=== PATIENT | male | born 1950 | race Caucasian/White ===

== ENCOUNTER 2021-04-05 06:22 | Day surgery (SDC) | payer MEDICARE, SELFPAY ==
[2021-03-31 11:33] VITALS: BMI 27.2
--- NOTE | 2021-03-31 13:23 | MHC.SHP ---
Pre-Procedural Eval Section A The patient is an INPATIENT: No The History & Physical has been completed within 30 days and I have reviewed it.: Yes Section B Chief Complaint: Right Eye Cataract Allergies: Allergies Allergy/AdvReac Type Severity Reaction Status Date / Time lisinopril Allergy Severe Angioedema Verified 03/31/21 11:40 Plan Diagnosis/Plan: Unchanged I have reviewed the history and physical and performed a pertinent physical examination on my patient. No changes have occurred unless specified.
--- NOTE | 2021-04-02 09:00 | P.CONAN_ITS ---
Documented by User: Meenu Bianchi 04/02/21 09:03 HPI - Anesthesia Eval Consult details Narrative: 70yo M for Right Cataract Multifocal with IOL Insertion No prev cataract on record [facility]CP [facility] Past Medical History Medical History Arthritis COVID-19 vaccine administered Diabetes Elevated cholesterol GERD (gastroesophageal reflux disease) History of colon cancer HTN (hypertension) Hx of cardiac murmur Surgical History Surgical History H/O colonoscopy History of colon resection History of esophagogastroduodenoscopy (EGD) Hx of appendectomy Hx of foot surgery Social History Social History Are you a primary personal care attendant to a significant other at home: No Do you presently have visiting nurse or other home services: No Patient Tobacco Use Status: Former Tobacco user Quit Date: age 60 Tobacco use type: Cigarette Years Smoked: 28 Use of substances other than those prescribed or required for medical reasons: No Have you been hit, kicked, punched, or otherwise hurt by someone within the past year? If so, by whom?: No Are you DNR?: No Advance Directives: Yes Advance Directives Information Provided: No Advance Directives on File: No (asked to bring day of surgery) Advance Directives Date on File: 04/05/21 Recently lost weight without trying: No Eating poorly because of decreased appetite: No Nutrition Risks: No Nutritional Risk Poor oral hygiene: No Meds Allergies Allergy/AdvReac Type Severity Reaction Status Date / Time lisinopril Allergy Severe Angioedema Verified 03/31/21 11:40 Home Medications Medication Instructions Recorded Confirmed Last Taken Type atorvastatin 1 tab PO BEDTIME 03/31/21 03/31/21 Unknown History dulaglutide [Trulicity] 0.5 ml SUBCUT QWEEK 03/31/21 04/05/21 04/04/21 History glipizide-metformin 1 tab PO BID 03/31/21 03/31/21 Unknown History irbesartan 1 tab PO BEDTIME 03/31/21 03/31/21 Unknown History omeprazole 20 mg PO BEDTIME 03/31/21 03/31/21 Unknown History aspirin 04/05/21 04/04/21 History Exam Exam Date and Time: April 02, 2021 0900 Height,Weight and Vital Signs: Height 6 ft 2 in Weight 96.162 kg Assessment and Plan Assessment Anesthesia Assessment: Chart Reviewed Documented by User: Doyle Arrington 04/05/21 07:07 [facility] Past Medical History Medical History Arthritis COVID-19 vaccine administered Diabetes Elevated cholesterol GERD (gastroesophageal reflux disease) History of colon cancer HTN (hypertension) Hx of cardiac murmur Surgical History Surgical History H/O colonoscopy History of colon resection History of esophagogastroduodenoscopy (EGD) Hx of appendectomy Hx of foot surgery Social History Social History Are you a primary personal care attendant to a significant other at home: No Do you presently have visiting nurse or other home services: No Patient Tobacco Use Status: Former Tobacco user Quit Date: age 60 Tobacco use type: Cigarette Years Smoked: 28 Use of substances other than those prescribed or required for medical reasons: No Have you been hit, kicked, punched, or otherwise hurt by someone within the past year? If so, by whom?: No Are you DNR?: No Advance Directives: Yes Advance Directives Information Provided: No Advance Directives on File: No (asked to bring day of surgery) Advance Directives Date on File: 04/05/21 Recently lost weight without trying: No Eating poorly because of decreased appetite: No Nutrition Risks: No Nutritional Risk Poor oral hygiene: No Meds Allergies Allergy/AdvReac Type Severity Reaction Status Date / Time lisinopril Allergy Severe Angioedema Verified 03/31/21 11:40 Home Medications Medication Instructions Recorded Confirmed Last Taken Type atorvastatin 1 tab PO BEDTIME 03/31/21 03/31/21 Unknown History dulaglutide [Trulicity] 0.5 ml SUBCUT QWEEK 03/31/21 04/05/21 04/04/21 History glipizide-metformin 1 tab PO BID 03/31/21 03/31/21 Unknown History irbesartan 1 tab PO BEDTIME 03/31/21 03/31/21 Unknown History omeprazole 20 mg PO BEDTIME 03/31/21 03/31/21 Unknown History aspirin 04/05/21 04/04/21 History Exam Airway Mallampati Class: II TM Dist: >3cm Neck ROM: Full Loose/Missing/Broken Teeth: No (many permanent crowns) Heart: [id number] Lungs: cta b/l Assessment and Plan Assessment Anesthesia Assessment: Anesthesia Plan Discussed, PAT Visit and Chart Reviewed Final Anesthetic Review NPO: Yes ASA Class: III Final Preanesthetic Review: No Changes in Pt Med Stat, Meds/Allgs Chart Reviewed, Consent Obtained/Reviewed and Anes Risks/Benef Reviewed Patient Risk: Low Procedure Risk: Low Assessment/Block/Sedation in SS: Assess/Block/Sedation-SS Anesthetic Plan Anesthetic Plan: MAC: and Agree w/ Assess. and Plan Disposition: Standard PACU
[2021-04-05 06:29] VITALS: BP 142/81; PULSE 85; RESP 16; TEMP 36.7; O2SAT 96
[2021-04-05 06:42] LABS: Glucose, Whole Blood 140 mg/dL (60-115)
[2021-04-05] MEDS: Tetracaine HCl/PF 0.5% Oph Sol 4 ML DROPS 1 DROP EYE-RIGHT (06:46)
[2021-04-05] MEDS: Tropicamide 1 % Ophth Sol 3 ML BTL 1 DROP EYE-RIGHT ×3 (06:47→07:01)
[2021-04-05] MEDS: Phenylephrine HCL 2.5% Oph SoL 2 ML BOTTLE 1 DROP EYE-RIGHT ×3 (06:51→07:04)
[2021-04-05] MEDS: Lactated Ringers 500 ML 50 ML IV (06:51)
--- NOTE | 2021-04-05 08:15 | HO.PNOPHT ---
Ophthalmology Procedure Procedure Date of Service: 04/05/21 Ophthalmology Viscoelastic: Healon Duet Dual Pack Pro Ophthalmology Lenses: TECNIS [id number] (22.5) Procedure Notes: PREOPERATIVE DIAGNOSIS: Decreased visual acuity right eye secondary to cataract POSTOPERATIVE DIAGNOSIS: Same PROCEDURE: Right cataract extraction with a toric multifocal intraocular lens insertion axis 92 degrees SURGEON: Steve Vargas M.D. ANESTHESIA: Topical/MAC ESTIMATED BLOOD LOSS: None COMPLICATIONS: None After obtaining informed consent, the patient was brought to the operating room suite and placed in the supine position. After adequate sedation per anesthesia, topical drops of Tetracaine were given to the right eye. The eye was then prepped and draped in the usual sterile fashion. The operating room microscope was then positioned over the operative eye and a lid speculum placed. A paracentesis was created. Viscoelastic was then instilled into the anterior chamber. A three plane incision was then created temporally, utilizing a 2.85 mm keratome. Capsulotomy forceps were then utilized to create a circular tear capsulotomy. Hydrodissection and hydrodelineation were carried out until adequate mobilization of the nucleus occurred. Phacoemulsification was then utilized to remove the dense central nucleus followed by removal of the cortical material utilizing the automated aspiration irrigation unit. Viscoelastic was instilled into the posterior capsular bag followed by placement of a multifocal posterior chamber intraocular lens without difficulty. The residual Viscoelastic was then removed utilizing the automated IA machine. The wound was checked and found to be watertight. The patient tolerated the procedure well and the lid speculum was removed. Intracameral injection of Vigamox 0.1 mL followed by a subtenon injection of Kenalog-40 0.2 mL were administered. The patient will be seen in the a.m.
[2021-04-05 08:16] VITALS: BP 142/82; PULSE 78; RESP 16; TEMP 36.4; O2SAT 95
== END 2021-04-05 08:53 | disposition home or self-care (01) ==
PROVIDERS: PCP Internal Medicine; Visit Provider Ophthalmology
PROC: (CPT 66984; principal; 2021-04-05 08:30)
DX: H25.11 Age-related nuclear cataract, right eye (principal); E11.9 Type 2 diabetes mellitus without complications; I10 Essential (primary) hypertension; Z79.84 Long term (current) use of oral hypoglycemic drugs; Z79.899 Other long term (current) drug therapy; Z88.8 Allergy status to other drugs, medicaments and biological substances
CPT/HCPCS: 66984; 82947; J2250; J3010; J3300; V2788

== ENCOUNTER 2021-04-19 06:15 | Day surgery (SDC) | payer MEDICARE, SELFPAY ==
[2021-03-31 11:42] VITALS: BMI 27.2
--- NOTE | 2021-04-15 07:39 | MHC.SHP ---
Pre-Procedural Eval Section A The patient is an INPATIENT: No The History & Physical has been completed within 30 days and I have reviewed it.: Yes Section B Chief Complaint: Cataract left eye Allergies: Allergies Allergy/AdvReac Type Severity Reaction Status Date / Time lisinopril Allergy Severe Angioedema Verified 03/31/21 11:40 Plan Diagnosis/Plan: Unchanged I have reviewed the history and physical and performed a pertinent physical examination on my patient. No changes have occurred unless specified.
[2021-04-19 06:57] VITALS: BP 149/84; PULSE 83; RESP 16; TEMP 36.3; O2SAT 94
[2021-04-19 06:57] LABS: Glucose, Whole Blood 135 mg/dL (60-115)
[2021-04-19] MEDS: Tetracaine HCl/PF 0.5% Oph Sol 4 ML DROPS 1 DROP EYE-LEFT (06:59)
[2021-04-19] MEDS: Tropicamide 1 % Ophth Sol 3 ML BTL 1 DROP EYE-LEFT ×3 (07:00→07:18)
[2021-04-19] MEDS: Lactated Ringers 500 ML 50 ML IV (07:02)
[2021-04-19] MEDS: Phenylephrine HCL 2.5% Oph SoL 2 ML BOTTLE 1 DROP EYE-LEFT ×3 (07:08→07:22)
--- NOTE | 2021-04-19 07:20 | HO.ANESPROP2 ---
[facility] Past Medical History Medical History Arthritis COVID-19 vaccine administered Diabetes Elevated cholesterol GERD (gastroesophageal reflux disease) History of colon cancer HTN (hypertension) Hx of cardiac murmur Surgical History Surgical History H/O colonoscopy History of colon resection History of esophagogastroduodenoscopy (EGD) Hx of appendectomy Hx of foot surgery Social History Social History Are you a primary career technical counselor to a significant other at home: No Do you presently have visiting nurse or other home services: No Patient Tobacco Use Status: Former Tobacco user Quit Date: age 60 Tobacco use type: Cigarette Years Smoked: 28 Use of substances other than those prescribed or required for medical reasons: No Are you DNR?: No Advance Directives: Yes Advance Directives Information Provided: No Advance Directives on File: No (advised to bring day of surgery) Advance Directives Date on File: 04/05/21 Recently lost weight without trying: No Eating poorly because of decreased appetite: No Nutrition Risks: No Nutritional Risk Poor oral hygiene: No Meds Allergies Allergy/AdvReac Type Severity Reaction Status Date / Time lisinopril Allergy Severe Angioedema Verified 03/31/21 11:40 Active Medications: Current Medications Generic Name Dose Route Start Last Admin Trade Name Freq PRN Reason Stop Dose Admin Povidone Iodine 1 appl 04/19/21 06:45 Povidone Iodine 5 % Ophth Soln 30 Ml Bottle EYE-LEFT PREOP PRN Pre-Op Surgical Implant Prophy Home Medications Medication Instructions Recorded Confirmed Last Taken Type atorvastatin 1 tab PO BEDTIME 03/31/21 03/31/21 Unknown History dulaglutide [Trulicity] 0.5 ml SUBCUT QWEEK 03/31/21 04/05/21 04/04/21 History glipizide-metformin 1 tab PO BID 03/31/21 03/31/21 Unknown History irbesartan 1 tab PO BEDTIME 03/31/21 03/31/21 Unknown History omeprazole 20 mg PO BEDTIME 03/31/21 03/31/21 Unknown History aspirin 04/05/21 04/04/21 History Exam Exam Date and Time: April 19, 2021 0720 Height,Weight and Vital Signs: Height 6 ft 2 in Weight 96.162 kg Last Vital Signs Temp 97.4 F 04/19/21 06:57 Pulse 83 04/19/21 06:57 Resp 16 04/19/21 06:57 BP 149/84 H 04/19/21 06:57 Pulse Ox 94 04/19/21 06:57 Pertinent Lab Results Pertinent Lab Results: Laboratory Tests 04/19/21 06:52 POC Glucose 135 H Airway Mallampati Class: III (Top cap) TM Dist: >3cm Neck ROM: Full Heart: rr r Lungs: cta Assessment and Plan Assessment Anesthesia Assessment: Anesthesia Plan Discussed and Chart Reviewed Final Anesthetic Review NPO: Yes ASA Class: III Final Preanesthetic Review: No Changes in Pt Med Stat and Consent Obtained/Reviewed Patient Risk: Intermediate Procedure Risk: Intermediate Anesthetic Plan Anesthetic Plan: MAC: Disposition: Standard PACU
--- NOTE | 2021-04-19 08:20 | HO.PNOPHT ---
Ophthalmology Procedure Procedure Date of Service: 04/19/21 Ophthalmology Viscoelastic: Healon Duet Dual Pack Pro Ophthalmology Lenses: TECNIS [id number] (20) Procedure Notes: PREOPERATIVE DIAGNOSIS: Decreased visual acuity left eye secondary to cataract POSTOPERATIVE DIAGNOSIS: Same PROCEDURE: Left cataract extraction with toric multifocal intraocular lens insertion axis 91 SURGEON: Steve Vargas M.D. ANESTHESIA: Topical/MAC ESTIMATED BLOOD LOSS: None COMPLICATIONS: None After obtaining informed consent, the patient was brought to the operation room suite and placed in the supine position. After adequate sedation per anesthesia, topical drops of Tetracaine were given to the left eye. The eye was then prepped and draped in the usual sterile fashion. The operating room microscope was then positioned over the operative eye and a lid speculum placed. A paracentesis was created. Viscoelastic was then instilled into the anterior chamber. A three plane incision was then created temporally, utilizing a 2.85 mm keratome. Capsulotomy forceps were then utilized to create a circular tear capsulotomy. Hydrodissection and hydrodelineation were carried out until adequate mobilization of the nucleus occurred. Phacoemulsification was then utilized to remove the dense central nucleus followed by removal of the cortical material utilizing the automated aspiration irrigation unit. Viscoelastic was instilled into the posterior capsular bag followed by placement of a toric multifocal posterior chamber intraocular lens axis 91 without difficulty. The residual Viscoelastic was then removed utilizing the automated IA machine. The wound was check and found to be watertight. The patient tolerated the procedure well and the lid speculum was removed. Intracameral injection of Vigamox 0.1 mL followed by a subtenon injection of Kenalog-40 0.2 mL were administered. The patient will be seen in the a.m.
[2021-04-19 08:52] VITALS: BP 145/86; PULSE 76; RESP 18; TEMP 36.6; O2SAT 94
== END 2021-04-19 08:57 | disposition home or self-care (01) ==
PROVIDERS: PCP Internal Medicine; Visit Provider Ophthalmology
PROC: (CPT 66984; principal; 2021-04-19 08:20)
DX: H25.12 Age-related nuclear cataract, left eye (principal); H54.7 Unspecified visual loss; I10 Essential (primary) hypertension; E11.9 Type 2 diabetes mellitus without complications; Z79.84 Long term (current) use of oral hypoglycemic drugs; Z79.899 Other long term (current) drug therapy; Z85.038 Personal history of other malignant neoplasm of large intestine; Z90.49 Acquired absence of other specified parts of digestive tract; Z87.891 Personal history of nicotine dependence
CPT/HCPCS: 66984; 82947; J2250; J3010; J3300; V2788